=== PATIENT | female | born 1995 | race Caucasian/White ===

== ENCOUNTER 2022-08-30 14:17 | Inpatient (IN) | payer BC ==
[~2022-08-30] VITALS: Ht 170.2 cm; Wt 93.2 kg
[2022-08-30] VITALS (31 sets, daily range): BP systolic 98–141; BP diastolic 51–81; PULSE 65–115; TEMP 98–99
[2022-08-30] MEDS ORDERED: TYLENOL 500MG500 MG PO (14:41)
[2022-08-30] MEDS ORDERED: PRENATAL TABLET PO (14:41)
--- NOTE | 2022-08-30 15:00 | NUR ---
1420- Pt presents to L&D via wheelchair with complaints of contractions every 2-3 mins since approx 1130 this morning. 1430- Pt into bed, EFM and TOCO on and tracing well. O2 sat monitor on and tracing maternal HR. VSS. Assessments completed. Pt denies VB or LOF. +FM. Pt denies complications.
[2022-08-30 15:35] LABS: BASO % 0.3 % (0.0-2.0); EOS # 0.1 K/mm3 (0.0-0.7); EOS % 0.6 % (0.0-4.0); GRAN # 8.8 K/mm3 (1.4-6.5); GRAN % 81.1 % (42.2-75.2); HEMOGLOBIN 10.7 g/dl (12.5-16.0); LYMPH # 1.2 K/mm3 (1.2-3.4); LYMPH % 10.8 % (20.0-51.0); MEAN CELL VOLUME 83 fl (80.0-100.0); MEAN CORPUSCULAR HEMOGLOBIN 27 pg (27-31); MEAN CORPUSCULAR HGB CONC 33 g/dl (33.0-37.0); MEAN PLATELET VOLUME 10.3 fl (7.4-10.4); MONO # 0.7 K/mm3 (0.1-0.6); MONO % 6.7 % (1.7-9.3); PLATELET COUNT 281 K/mm3 (130-400); RED BLOOD COUNT 3.97 M/mm3 (4.10-5.30); REDCELL DISTRIBUTION WIDTH-CV 13.8 % (11.5-14.5)
[2022-08-30 15:36] LABS: HEMATOCRIT 32.8 % (37.0-47.0)
--- NOTE | 2022-08-30 16:00 | NUR ---
1543- Pt assisted to sitting on the side of the bed for epidural placement. O2 sat monitor on and tracing maternal HR. KEIRY Irving at bedside. 1553- Test dose, see anesthesia record. 1558- Pt assisted to WL. O2 sat monitor off. EFM and TOCO adjusted.
--- NOTE | 2022-08-30 20:29 | NUR ---
2028Pt reports increased rectal pressure. SVE C/+1. Practice push with pt. Moves vertex. 2036Dr. Marissa updated on pt. See physician notification. 2039Catheter removed. Keena care provided. Patient pushing with contractions with RN at bedside. Strong maternal effort. Moves vertex well. 2057Dr. Marissa to bedside for delivery. 2103Spontaneous vaginal delivery of viable male infant. To mother's chest where dried and stimulated by nursery RN. Nares and mouth bulb suctioned by Dr. Ann. ord clamped x2 and cut by father of . Care of assumed by Jaime Low RN. 2107Spontaneous and intact delivery of placenta. Cytotec 600mcg rectal by Dr. Ann. Second degree perineal laceration repaired by provider. Fundus firm, midline, bleeding minimal. Keena care provided, pads changed, and ice pack to perineum. Plan of care and safety precautions reviewed. See anesthesia record, nurses notes, and doctor dictation.
[2022-08-31 03:00] VITALS: BP 113/60; PULSE 75; TEMP 98
[2022-08-31 07:15] VITALS: BP 119/66; PULSE 69; TEMP 98.2
[2022-08-31] MEDS ORDERED: IBU800 M1 PO (09:18)
[2022-08-31 16:45] VITALS: BP 114/68; PULSE 66; TEMP 97.8
--- NOTE | 2022-08-31 21:30 | NUR ---
2130 READY TO GO HOME. DISCHARGE INSTRUCTIONS GONE OVER WITH NO QUESTIONS AT THIS TIME 2200 DIMISSED TO HOME PER AMB ACC BY AND .
== END 2022-08-31 22:00 | disposition home or self-care (01) | DRG 807 ==
LOC: LDRO 14:17 → LDR 14:54 → OB 23:30
PROVIDERS: Obstetrics & Gynecology; ADMIT Obstetrics & Gynecology
PROC: 10E0XZZ Delivery of Products of Conception, External Approach (ICD-10-PCS; principal; 2022-08-30)
PROC: 0KQM0ZZ Repair Perineum Muscle, Open Approach (ICD-10-PCS; 2022-08-30)
DX: O70.1 Second degree perineal laceration during delivery (principal); Z37.0 Single live birth; Z23 Encounter for immunization; Z3A.39 39 weeks gestation of pregnancy
CPT/HCPCS: J7120